=== PATIENT | female | born 1985 | race Caucasian/White ===

== ENCOUNTER 2025-03-04 13:35 | Emergency (ER) | payer OTHER, SELFPAY ==
[2025-03-04 13:37] VITALS: BP 107/74
[2025-03-04 14:19] LABS: % Basophils 0.4 % (0-2); % Eosinophils 3.3 % (0-6); % Immature Granulocytes 0.2 % (0-0.5); % Lymphocytes 29.5 % (20.5-51.1); % Monocytes 6.2 % (1.7-9.3); % Neutrophils 60.4 % (42.2-75.2); Absolute Eosinophils 0.3 10^3/uL (0-0.7); Absolute Lymphocytes 2.7 10^3/uL (1.2-3.4); Absolute Monocytes 0.6 10^3/uL (0.1-0.6); Absolute Neutrophils 5.5 10^3/uL (1.4-6.5); Hematocrit 37.4 % (37.0-47.0); Hemoglobin 12.7 g/dL (12.0-16.0); Mean Corpuscular Hgb 28.4 pg (27.0-31.0); Mean Corpuscular Volume 83.7 fL (81.0-99.0); Mean Platelet Volume 9.9 fL (7.4-10.4); Nucleated Red Blood Cells % 0 %; Platelet Count 332 10^3/uL (130-400); Red Blood Cell Count 4.47 10^6/uL (4.20-5.40); Red Cell Dist. Width 13.6 % (11.5-14.5); White Blood Cell Count 9.1 10^3/uL (4.8-10.8)
[2025-03-04 14:30] LABS: HCG, Serum Qualitative Screen Negative
[2025-03-04 15:09] LABS: ALT (SGPT) 14 U/L (0-35); AST (SGOT) 18 U/L (14-36); Albumin 4.6 g/dl (3.5-5.0); Alkaline Phosphatase 76 U/L (38-126); Blood Urea Nitrogen 13 mg/dl (7-17); Calcium 9.8 mg/dl (8.4-10.2); Carbon Dioxide 23 mmol/L (22-30); Chloride 105 mmol/L (98-107); Glucose 101 mg/dl (70-99); Potassium 3.8 mmol/L (3.5-5.1); Sodium 140 mmol/L (135-145); Total Bilirubin 0.5 mg/dl (0.2-1.3); Total Protein 6.9 g/dl (6.3-8.2); eGFR > 60.00
[2025-03-04 16:34] VITALS: BMI 32.3
--- NOTE | 2025-03-04 16:34 | ED.GENMED ---
History of Present Illness
General
Chief Complaint: Vaginal Bleeding
Source: patient
Time Seen by Provider: 03/04/25 16:04
History of Present Illness
History of Present Illness:
40-year-old female presents to the emergency room complaining of bleeding from either her rectum or vagina. Patient states that she went to the bathroom and noticed a significant amount of blood. She was unsure if it came from an external
hemorrhoid or if it was vaginal. She felt dizzy shortly thereafter. Patient denies any abdominal pain or pelvic cramping. She has had regular menstrual periods. She does see french comber at [facility]. She denies stopping any hormonal
treatments recently. She states there is no chance she is because she is not sexually active.
Phy Exam
Physical Exam
Physical Exam:
General: Awake, Alert, Oriented X3. No acute distress.
Vitals: unremarkable
Head: Atraumatic
Eyes: Pupils equal, EOMI
Throat: Airway intact, no exudates
Neck: Trachea midline
Lungs: Clear and equal b/l
Heart: Regular rate, no murmurs
Abd: Soft, Nontender, No pulsatile mass
Pelvic: Small amount of blood noted on the introitus but no blood noted in the vaginal canal. Cervix appears normal. No evidence of rectal bleeding.
Neuro: nonfocal
Skin: Warm, dry, no rash
Extremities: pulses equal b/l, no edema
Course
Orders/Labs/Results
Orders:
Orders
03/04/25 13:42
Type+Screen Urgent
Electrocardiogram (*1) Urgent
Reason for Study: Syncope
EKG- Treatment ONCE
Test Result ONCE
03/04/25 13:49
Complete Blood Count/With Diff Urgent
Comprehensive Metabolic Panel Urgent
HCG, Serum Qualitative Screen Urgent
03/04/25 16:32
US Pelvis W Transvag Combined Urgent
Reason For Exam: heavy vag bleeding
Abnormal Lab Results
03/04/25
13:49
Glucose 101 H mg/dl
(70-99)
03/04/25 13:49
03/04/25 13:49
Vital Signs
Initial and Last Documented VS:
Initial Vital Signs
Temp Pulse Resp BP Pulse Ox
99.3 F 94 18 107/74 97
03/04/25 13:37 03/04/25 13:37 03/04/25 13:37 03/04/25 13:37 03/04/25 13:37
Last Documented Vital Signs
Temp Pulse Resp BP Pulse Ox
99.3 F 87 17 104/82 96
03/04/25 13:37 03/04/25 19:33 03/04/25 19:33 03/04/25 19:31 03/04/25 19:33
MDM/Problems Addressed
Differential Diagnosis Includes:
anovulatory bleeding, dub, ectopic
MDM/Problems Addressed:
Patient presents after an episode heavy vaginal bleeding. Bleeding has stopped. There was some question as to whether this could be rectal bleeding but I see no evidence on this on exam. Labs are stable. Ultrasound shows a involuting corpus
luteal cyst of the right ovary. Patient stable for discharge home and follow-up with [facility]. No further bleeding here in the emergency room.
*Radiology
Radiology exam reviewed: radiology read reviewed
*Pulse Oximetry
Patient hypoxic: no
*Critical Care Note
Total Time (30-74mins, 75-104mins- exclusive of procedures): Not Applicable
ED Attending Note
-
Portions of this chart may have been created with voice recognition software.� Occasional wrong word or��sound alike� substitutions may have occurred due to the inherent limitations of voice recognition software.
Discharge Plan
Departure
Patient Disposition: Home (Routine Discharge)
Date of Disposition: 03/04/25
Time of Disposition: 20:35
Patient with high blood pressure during this ER visit?: No
Condition: Good
Discharge Problem:
Abnormal vaginal bleeding
Instructions: Heavy periods
Referrals:
UNKNOWN - PT DOES,NOT KNOW [Unknown Provider] -
Stand Alone Forms: Return to Work
Activity Restrictions/Additional Instructions:
Please follow up with your [facility]. Return for any concerns.
Interventions
Interventions:
*Risk Screen - Suicide Last Done: 03/04/25 13:37
*General Assessment Last Done: 03/04/25 13:37
*Neglect/Abuse Screening Last Done: 03/04/25 13:37
*ED- Fall Risk Assessment Last Done: 03/04/25 16:34
*ED COVID-19 Vaccine History Last Done: 03/04/25 16:34
*Nursing Disposition Last Done: 03/04/25 20:46
ED-Female Genitourinary Assessment Last Done: 03/04/25 16:35
Discharge Date and Time
Print Language: SYRIAC
[2025-03-04 16:36] VITALS: BP 99/74
[2025-03-04 19:31] VITALS: BP 104/82
[2025-03-04 20:46] VITALS: BP 114/74
== END 2025-03-04 20:55 | disposition home or self-care (01) ==
LOC: EMR 13:35
PROVIDERS: Emergency Medicine; EMERGENCY PHYSICIAN Emergency Medicine; FAMILY PHYSICIAN Family Medicine
DX: N93.9 Abnormal uterine and vaginal bleeding, unspecified (principal); N83.201 Unspecified ovarian cyst, right side
CPT/HCPCS: 99284; 76830; 76856; 80053; 84703; 85025; 93005